=== PATIENT | male | born 1990 | race African-American/Black ===

== ENCOUNTER → 2016-05-11 | Outpatient (CLI) | payer BC ==
[~2016-05-11] MED LIST: GLGKIT; HMLI SC; lantus SQ
[2016-05-11 18:46] LABS: ESTIMATED AVERAGE GLUCOSE 206 mg/dl; HA1C FLAG Normal (Normal)
== END | disposition home or self-care (01) ==
LOC: C.LAB1850 16:31
PROVIDERS: ATTEND Internal Medicine Endocrinology, Diabetes & Metabolism
DX: E10.9 Type 1 diabetes mellitus without complications (principal)

== ENCOUNTER → 2016-09-10 | Outpatient (CLI) | payer BC ==
[2016-09-11 06:22] LABS: ESTIMATED AVERAGE GLUCOSE 203 mg/dl; HA1C FLAG Normal (Normal)
== END | disposition home or self-care (01) ==
LOC: C.LAB1850 12:53
PROVIDERS: ATTEND Internal Medicine Endocrinology, Diabetes & Metabolism
DX: E10.9 Type 1 diabetes mellitus without complications (principal)

== ENCOUNTER → 2017-02-01 | Outpatient (CLI) | payer BC ==
[2017-02-01 17:58] LABS: ALBUMIN 3.8 gm/dl (3.4-5.0); ALKALINE PHOSPHATASE 93 U/L (45-117); ALT/SGPT 42 U/L (12-78); AST/SGOT 14 U/L (15-37); BLOOD UREA NITROGEN 17 mg/dl (7-18); CALCIUM 8.6 mg/dl (8.5-10.1); CARBON DIOXIDE 29 mmol/L (21-32); CHOLESTEROL 116 mg/dl (0-200); CREATININE 1.19 mg/dl (0.60-1.40); CREATININE RANDOM URINE 33.2 mg/dl; GLUCOSE 432 mg/dl (70-99); LDL CHOLESTEROL CALCULATED 62 mg/dl; POTASSIUM 4.3 mmol/L (3.5-5.1); SODIUM 132 mmol/L (136-145); TOTAL PROTEIN 7.4 gm/dl (6.4-8.2)
[2017-02-02 07:21] LABS: HEMOGLOBIN A1C 8.8 % (4.5-5.6)
== END | disposition home or self-care (01) ==
LOC: C.LAB1850 16:23
PROVIDERS: ATTEND Internal Medicine Endocrinology, Diabetes & Metabolism
DX: E55.9 Vitamin D deficiency, unspecified (principal); E03.9 Hypothyroidism, unspecified; E10.649 Type 1 diabetes mellitus with hypoglycemia without coma; E10.65 Type 1 diabetes mellitus with hyperglycemia